=== PATIENT | female | born 1945 | race Caucasian/White ===

== ENCOUNTER 2017-12-12 11:03 | Emergency (ER) | payer MEDICARE, OTHER ==
[~2017-12-12] VITALS: Ht 154.9 cm; Wt 98.0 kg
--- NOTE | 2017-12-12 11:24 | PHYS DOC ---
Past History Additional Past Medical Histor: fibromyalgia, arthritis Smoking: Non-smoker Adult General Chief Complaint Chief Complaint: ANKLE PROBLEM HPI HPI Patient is a 72-year-old female who presents to the emergency department for evaluation. She states that she was standing on one step, when she was handing somethings her up the stairs, and when she stepped down she missed the step and rolled her left ankle. She complains of pain primarily at the lateral malleolus of her left ankle. She was able to ambulate without significant difficulty. She denies any other injuries, although she states she didn't fall. She did not hit her head hard, and denies a headache, neck pain, back pain, or any other extremity pain, and has not had any numbness, weakness, or vision changes. The patient of the affected area as well as ambulate she worsen her pain. There are no alleviating factors to her symptoms. Review of Systems Review of Systems Constitutional: Denies fever or chills [] Eyes: Denies change in visual acuity, redness, or eye pain [] HENT: Denies nasal congestion or sore throat [] Respiratory: Denies cough or shortness of breath [] Cardiovascular: The patient denies any shortness of breath, chest pain, palpitations, or orthopnea [] GI: Denies abdominal pain, nausea, vomiting, bloody stools or diarrhea [] Musculoskeletal: Denies back pain or joint pain, except as noted in the history of present illness. 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 [] Neurologic: Denies headache, focal weakness or sensory changes [] Current Medications Current Medications Current Medications Medications (Trade) Dose Ordered Sig/[facility] Start Time Stop Time Status Last Admin Dose Admin Ibuprofen (Motrin) 600 mg 1X ONCE 12/12/17 11:30 12/12/17 11:31 UNV Allergies Allergies Allergies Coded Allergies Type Severity Reaction Last Updated Verified No Known Drug Allergies 12/12/17 No Physical Exam Physical Exam PHYSICAL EXAM: CONSTITUTIONAL: Well developed, well nourished HEAD: normocephalic, atraumatic EENT: PERRL, EOMI. Conjunctivae normal color, sclerae non-icteric; moist mucous membranes. NECK: Supple, non-tender; no meningismus. LUNGS: Lungs CTA, breathing even and unlabored. Normal air movement. HEART: Regular rate and rhythm, no murmur CHEST: No deformity; non-tender ABDOMEN: The abdomen is soft, and non-tender, no masses or bruits. EXTREM: There is no pedal edema. There is tenderness to palpation along the lateral malleolus of the left ankle, with some mild bruising and soft tissue swelling noted. The foot, including the base of the fifth metatarsal is nontender. The remainder of the lower leg is nontender. The remainder of extremities are atraumatic, with normal ROM; no deformity, no calf tenderness. Normal pulses palpable in all extremities. SKIN: No rash; no diaphoresis NEURO: Alert; normal speech and cognition; CN's grossly intact; strength grossly intact without focal deficit. BACK: No CVA TTP. EKG EKG [] Radiology/Procedures Radiology/Procedures [PROCEDURE: ANKLE LEFT 3V Three-view left ankle radiographs 12/12/2017 CLINICAL HISTORY: Left ankle pain post fall this morning. AP, lateral and oblique digital radiographs of the left ankle were obtained. An acute slightly comminuted fracture of the inferior aspect of the lateral malleolus of the left ankle is seen. The alignment of the fracture fragments is near-anatomic. Soft tissue swelling is seen in this region. No additional acute fracture is seen. Mild to moderate degenerative changes are seen involving the left ankle joint. Moderate enthesophyte formation seen involving the posterior left calcaneus. IMPRESSION: Acute slightly comminuted fracture of the lateral malleolus of the left ankle. ] Course & Med Decision Making Course & Med Decision Making Pertinent Imaging studies reviewed. (See chart for details) [11:45 AM:Patient remains stable. I discussed test results, the need for close follow-up, and return precautions. She has an orthopedic physician whom she seems, and she'll be placed in a splint (her no walking boots available here), and she was referred for orthopedic follow-up to her orthopedic physician. She states she has adequate pain medication at home, and crutches at home as well.] PROCEDURE NOTE: A posterior short leg splint was applied by ER nursing staff and inspected by me post application, PMS intact post placement. Dragon Disclaimer Dragon Disclaimer This electronic medical record was generated, in whole or in part, using a voice recognition dictation system. Departure Departure: Impression: Primary Impression: Ankle fracture Disposition: 01 HOME, SELF-CARE Condition: STABLE Referrals: ANDREW ROBLES MD (PCP) Patient Instructions: Ankle Fracture, Cast or Splint Care, Crutch Use SOLIS GUZMÁN MD Dec 12, 2017 11:24
--- NOTE | 2017-12-12 11:40 | RAD ---
Three-view left ankle radiographs 12/12/2017 CLINICAL HISTORY: Left ankle pain post fall this morning. AP, lateral and oblique digital radiographs of the left ankle were obtained. An acute slightly comminuted fracture of the inferior aspect of the lateral malleolus of the left ankle is seen. The alignment of the fracture fragments is near-anatomic. Soft tissue swelling is seen in this region. No additional acute fracture is seen. Mild to moderate degenerative changes are seen involving the left ankle joint. Moderate enthesophyte formation seen involving the posterior left calcaneus. IMPRESSION: Acute slightly comminuted fracture of the lateral malleolus of the left ankle. Electronically signed by: Devonte Mccarthy MD (12/12/2017 11:37 AM) [id number]
[2017-12-12] MEDS ORDERED: IBUPROFEN 600 MG TABLET. PO ONE (11:45)
[2017-12-12 12:15] VITALS: BP 150/85
== END 2017-12-12 12:15 | disposition home or self-care (01) ==
LOC: ER 11:03
DX: S82.62XA Displaced fracture of lateral malleolus of left fibula, initial encounter for closed fracture (principal); M19.90 Unspecified osteoarthritis, unspecified site; M79.7 Fibromyalgia; X50.9XXA Other and unspecified overexertion or strenuous movements or postures, initial encounter; Y93.89 Activity, other specified; Y99.8 Other external cause status; Y92.89 Other specified places as the place of occurrence of the external cause
CPT/HCPCS: 29515; 73610; 99284